=== PATIENT | female | born 1975 | race Caucasian/White ===

== ENCOUNTER 2016-08-26 09:50 | Emergency (ER) | payer OTHER ==
[2016-08-26 10:33] VITALS: BP 133/83; PULSE 64; RESP 16; TEMP 98.2; O2SAT 96
--- NOTE | 2016-08-26 11:01 | UCPHY ---
H & P Time Seen by Provider: 08/26/16 10:55 Patient Type: Established HPI/ROS: This patient has a 24 hour history of left eye itching redness and discharge. She reports minimal irritation associated with this. She has no vision changes. She has no right eye symptoms. She thinks she contracted this from her niece who had pinkeye this past week. She notes no exacerbating or alleviating factors. ROS: No fevers. No URI symptoms. No eye trauma. 5 point ROS is otherwise negative. Smoking Status: Former smoker Physical Exam: Physical Exam Vital signs are normal. General: No acute distress HEENT: Nose: Clear Eyes: Pupils equal and react to light. Extraocular motions are intact. Conjunctival injection is present the left eye with minimal eyelid swelling. No discharges actively present. Lungs: No respiratory distress Skin: No rash or pallor. Neuro: Alert Constitutional: Initial Vital Signs Temperature (C) 36.8 C 08/26/16 10:31 Heart Rate 64 08/26/16 10:31 Respiratory Rate 16 08/26/16 10:31 Blood Pressure 133/83 H 08/26/16 10:31 O2 Sat (%) 96 08/26/16 10:31 O2 Delivery Mode Room Air Allergies/Adverse Reactions: acetaminophen [From Lortab] Allergy (Verified 08/26/16 10:34) hydrocodone bitartrate [From Lortab] Allergy (Verified 08/26/16 10:34) Home Medications: Medication Instructions Recorded Ofloxacin 0.3% [Ocuflox 0.3% (RX)] 2 drops EACHEYE Q1 #1 btl 08/26/16 Departure - Departure Disposition: Home, Routine, Self-Care Condition: Good Instructions: Conjunctivitis (ED) Additional Instructions: Diagnosis: Conjunctivitis Plan: Wash hands frequently Ocuflox antibiotic drops No work until tomorrow. Referrals: NONE *PRIMARY CARE P,. [Primary Care Provider] - As per Instructions Stand Alone Forms: Work Excuse Prescriptions: Ofloxacin 0.3% [Ocuflox 0.3% (RX)] 2 drops EACHEYE Q1 #1 btl - PQRS PQRS Measurement: NA
== END 2016-08-26 11:18 | disposition home or self-care (01) ==
LOC: CED 09:50
DX: H10.9 Unspecified conjunctivitis (principal)
CPT/HCPCS: G0463-PO

== ENCOUNTER 2017-06-06 15:49 | Emergency (ER) | payer OTHER ==
[2017-06-06 16:00] VITALS: BP 138/99; PULSE 93; RESP 18; TEMP 97.3; O2SAT 97
--- NOTE | 2017-06-06 16:28 | EDPHY ---
H & P Stated Complaint: miscarriage last yesterday, high hcg levels today Time Seen by Provider: 06/06/17 16:02 HPI/ROS: CHIEF COMPLAINT: Rule out ectopic HISTORY OF PRESENT ILLNESS: The patient is a 42-year-old G1 female who thinks she had a miscarriage yesterday and the day before. She is not quite sure how she was but followed up with her OB GYNs office today. She had an ultrasound in the office that revealed an empty uterus and a ovarian cyst but no obvious ectopic. Her quant came back this afternoon greater than 3000. She was called by the nurse practitioner and told to come to the ER because she could have an ectopic. The patient denies having any pain bleeding or discharge at this time. She states that yesterday she did passed several clots and was cramping. She states that on Friday she passed what looked like tissue. No fever. No vomiting. REVIEW OF SYSTEMS: Constitutional: denies: chills, fever, recent illness, recent injury EENTM: denies: blurred vision, double vision, nose congestion Respiratory: denies: cough, shortness of breath Cardiac: denies: chest pain, irregular heart rate, lightheadedness, palpitations Gastrointestinal/Abdominal: denies: abdominal pain, diarrhea, nausea, vomiting, blood streaked stools Genitourinary: denies: dysuria, frequency, hematuria, pain Musculoskeletal: denies: joint pain, muscle pain Skin: denies: lesions, rash, jaundice, bruising Neurological: denies: headache, numbness, paresthesia, tingling, dizziness, weakness Hematologic/Lymphatic: denies: blood clots, easy bleeding, easy bruising Immunologic/allergic: denies: HIV/AIDS, transplant EXAM: GENERAL: Well-appearing, well-nourished and in no acute distress. HEAD: Atraumatic, normocephalic. EYES: Pupils equal round and reactive to light, extraocular movements intact, sclera anicteric, conjunctiva are normal. ENT: TMs normal, nares patent, oropharynx clear without exudates. Moist mucous membranes. NECK: Normal range of motion, supple without lymphadenopathy or JVD. LUNGS: Breath sounds clear to auscultation bilaterally and equal. No wheezes rales or rhonchi. HEART: Regular rate and rhythm without murmurs, rubs or gallops. ABDOMEN: Soft, nontender, normoactive bowel sounds. No guarding, no rebound. No masses appreciated. BACK: No CVA tenderness, no spinal tenderness, step-offs or deformities EXTREMITIES: Normal range of motion, no pitting or edema. No clubbing or cyanosis. NEUROLOGICAL: Cranial nerves II through XII grossly intact. Normal speech, normal gait. 5/5 strength, normal movement in all extremities, normal sensation PSYCH: Normal mood, normal affect. SKIN: Warm, dry, normal turgor, no visible rashes or lesions. Source: Patient Exam Limitations: No limitations - Medical/Surgical History Hx Asthma: No Hx Chronic Respiratory Disease: No Hx Diabetes: No Hx Cardiac Disease: No Hx Renal Disease: No Hx Cirrhosis: No Hx Alcoholism: No Hx HIV/AIDS: No Hx Splenectomy or Spleen Trauma: No Other PMH: A1 - Social History Smoking Status: Former smoker Alcohol Use: Sober Drug Use: None Constitutional: Initial Vital Signs Temperature (C) 36.3 C 06/06/17 15:56 Heart Rate 93 06/06/17 15:56 Respiratory Rate 18 06/06/17 15:56 Blood Pressure 138/99 H 06/06/17 15:56 O2 Sat (%) 97 06/06/17 15:56 O2 Delivery Mode Room Air Allergies/Adverse Reactions: hydrocodone [From Lorcet (hydrocodone)] Allergy (Verified 06/06/17 15:54) hydrocodone bitartrate [From Lortab] Allergy (Verified 06/06/17 15:54) Home Medications: Medication Instructions Recorded NK [No Known Home Meds] 06/06/17 Medical Decision Making ED Course/Re-evaluation: The patient has no complaints currently. I spoke with her OBGYN doctor Michelle Davis in [place]. She recommended the patient return on Friday for repeat quant and ultrasound. If her quant is continuing to rise to then administer methotrexate. She did also recommend that we find out the patient's blood type in if she is Rh negative administer RhoGAM. 4:30 p.m. the patient is unsure of her blood type as is her family. The is sure that he is O negative. Unfortunately we would have to jarret over to the [facility] hospital the patient's blood for blood typing which would take several hours and she does not wish to wait. I have called back the OBGYN to see if they have record of her blood type. 4:50 p.m. the patient was able to confirm with her mom that she is type A positive. We offered to go ahead and run her blood type here to confirm but she declines. She is concerned about cost. I have paged her doctor back but she has not returned the call. 5:05 p.m. the patient's doctor did call back and does not think that they know her blood type. She is okay with the patient not receiving Rhogam at this point and suggested maybe we check it on Friday. Differential Diagnosis: Partial list of the Differential diagnosis considered include but were not limited to; ectopic , miscarriage and although unlikely based on the history and physical exam, I also considered hemorrhage, ovarian torsion, infection. I discussed these differential diagnoses and the plan with the patient as well as the usual and expected course. The patient understands that the diagnosis is provisional and that in medicine we are not always correct and that further workup is often warranted. Usual and customary warnings were given. All of the patient's questions were answered. The patient was instructed to return to the emergency department should the symptoms at all worsen or return, otherwise to followup with the physician as we discussed. - Data Points Laboratory Results: 06/06/17 16:45 Patient ABO/Rh Pending Departure - Departure Disposition: Home, Routine, Self-Care Clinical Impression: Miscarriage Condition: Fair Instructions: Miscarriage (ED) Additional Instructions: Dr. Rosales recommend that she return to the ER on Friday to have a repeat beta- hCG quantitative drawn as well as a repeat ultrasound. If your quant is increasing she would like you to be treated with methotrexate. Referrals: NONE *PRIMARY CARE P,. [Primary Care Provider] - As per Instructions (Dr. Rosales )
== END 2017-06-06 16:59 | disposition home or self-care (01) ==
LOC: CED 15:49
DX: O03.9 Complete or unspecified spontaneous abortion without complication (principal); Z87.891 Personal history of nicotine dependence

== ENCOUNTER 2017-06-08 09:23 | Emergency (ER) | payer OTHER ==
--- NOTE | 2017-06-08 09:38 | EDPHY ---
H & P Stated Complaint: blood work after recent misscarriage Time Seen by Provider: 06/08/17 09:38 HPI/ROS: HPI: This is a 42-year-old female presents with Chief Complaint: blood work after recent miscarriage Location: Quality: Duration: Signs and Symptoms: no fever, no nausea, no vomiting, no hematemesis, no blood in stool, no abdominal bloating, no diarrhea, no back pain, no urinary symptoms , no testicular/groin pain, no indigestion, no chest pain, no shortness of breath Timing: Severity: Context: A1, LMP around April 08, [address] Michelle Rosales in [place] presents with requesting repeat beta HCG quantitative and ABO-Rh type. Patient was seen in the emergency room on 06/06/2017 to rule out ectopic . She was seen earlier that Friday in her OBGYN office with an ultrasound at that time that showed an empty uterus and an ovarian cyst but no yolk sac/ovarian torsion/obvious ectopic . On Friday her beta HCG quant came back 3744. She believes that she may have had a miscarriage on 06/05 or 06/04. She believes that on Friday she passed what looked like tissue. She reports that she has been having spotting for the last week or 2; only changing 1 maxi pad per day. Denies any abdominal/vaginal pain or cramping. Last Pap/pelvic smear was in February with her regular OBGYN. Denies any fever /back pain/urinary symptoms/nausea/vomiting. Patient is extremely concerned about cost and last ER visit did not obtain blood type or receive ultrasound but decided to come back today to be re-evaluated. Modifying Factors: Comment: ROS: see HPI Constitutional: No fever, no chills, no weight loss Eyes: No blurred vision Respiratory: No shortness of breath, no cough Cardiovascular: No chest pain, no palpitations Gastrointestinal: No nausea, no vomiting, no diarrhea, no hematemesis, no blood in stool Genitourinary: No dysuria, no blood in urine Extremities: No myalgias, no edema Neurologic: No weakness, no numbness Skin: No rashes, no petechiae Hematologic: No bruising, no bleeding MEDICAL/SURGICAL/SOCIAL HISTORY: Medical history: Generally healthy. Does not take any regular medications. Surgical history: Denies Social history: CONSTITUTIONAL: Extremely pleasant nontoxic appearing adult white female, awake and alert, no obvious distress HEENT: Atraumatic and normocephalic, PERRL, EOMI. Tympanic membranes clear. Oropharynx clear, no exudate and moist pink mucosa. Airway patent. No lymphadenopathy. No meningismus. Cardiovascular: Normal S1/S2, regular rate, regular rhythm, without murmur rub or gallop. PULMONARY/CHEST: Symmetrical and nontender. Clear to auscultation bilaterally. Good air movement. No accessory muscle usage. ABDOMEN: Soft, nondistended, nontender, no rebound, no guarding, no peritoneal signs, no masses or organomegaly. No CVAT. EXTREMITIES: 2/2 pulses, strength 5/5, no deformities, no clubbing, no cyanosis or edema. NEUROLOGICAL: no focal neuro deficits. GCS 15. SKIN: Warm and dry, no erythema. no rash. Good capillary refill. Source: Patient, Family () Exam Limitations: No limitations - Personal History Current Tetanus/Diphtheria Vaccine: No Current Tetanus Diphtheria and Acellular Pertussis (TDAP): No - Medical/Surgical History Hx Asthma: No Hx Chronic Respiratory Disease: No Hx Diabetes: No Hx Cardiac Disease: No Hx Renal Disease: No Hx Cirrhosis: No Hx Alcoholism: No Hx HIV/AIDS: No Hx Splenectomy or Spleen Trauma: No Other PMH: A1 - Social History Smoking Status: Former smoker Constitutional: Initial Vital Signs Temperature (C) 36.4 C 06/08/17 09:27 Heart Rate 79 06/08/17 09:27 Respiratory Rate 20 06/08/17 09:27 Blood Pressure 130/95 H 06/08/17 09:27 O2 Sat (%) 100 06/08/17 09:27 O2 Delivery Mode Room Air Allergies/Adverse Reactions: hydrocodone [From Lorcet (hydrocodone)] Allergy (Verified 06/08/17 09:27) hydrocodone bitartrate [From Lortab] Allergy (Verified 06/08/17 09:27) Home Medications: Medication Instructions Recorded NK [No Known Home Meds] 06/06/17 Medical Decision Making ED Course/Re-evaluation: Beta HCG quant and blood type were ordered initially per patient request. She requests to hold off on ultrasound at this time and touch base with Dr. Rosales before proceeding with ultrasound or starting methotrexate. Quant HCG is 964; decreasing which is to be expected. Blood type A positive; no RhoGAM indicated It appears patient has had of spontaneous miscarriage and her beta HCG levels are appropriately decreasing. She has no abdominal pain and minimal spotting at this point. No signs of sepsis. This patient was seen under the supervision of my secondary supervising physician. I evaluated care for this patient independently. Discussed this patient with Dr. Rueda who did not see the patient. Differential Diagnosis: Differential diagnosis includes but is not limited to ectopic , miscarriage, hemorrhage, ovarian torsion, infection. - Data Points Laboratory Results: 06/08/17 06/08/17 09:50 09:50 Beta HCG, Quant 964.84 mIU/mL H mIU/mL (0.00-4.83) Patient ABO/Rh A POSITIVE Departure - Departure Disposition: Home, Routine, Self-Care Clinical Impression: Spontaneous miscarriage Condition: Good Instructions: Miscarriage (ED) Additional Instructions: Today your quantitative beta HCG was 964. Blood Type: A positive. Please call Dr. Rosales's office on Friday for follow-up appointment this week. Referrals: NONE *PRIMARY CARE P,. [Primary Care Provider] - As per Instructions (Dr. Rosales ) Barbara Thompson MD [Medical Doctor] - As per Instructions
[2017-06-08 11:09] VITALS: BP 129/84; PULSE 69; RESP 18; TEMP 97.7; O2SAT 99
== END 2017-06-08 11:09 | disposition home or self-care (01) ==
DX: Z01.83 Encounter for blood typing (principal); Z87.891 Personal history of nicotine dependence